=== PATIENT | male | born 1965 | race African-American/Black ===

== ENCOUNTER 2017-04-07 11:39 | Emergency (ER) | payer OTHER ==
[~2017-04-07] VITALS: Ht 172.7 cm; Wt 94.9 kg
--- NOTE | 2017-04-07 11:58 | EMERGENCY ROOM VISIT NOTE ---
History Report prepared by Korin: Montana Lin Under the Supervision of: Dr. Shane Keith M.D. First contact with patient: 11:46 Stated Complaint: ALLERGIC REACTION History of Present Illness The patient is a 51 year old male who presents to the Emergency Room with complaints of facial swelling that began 4 hours ago. The patient is on Norvax for his high blood pressure. The patient denies rashes and abdominal pain. Pt denies LOC, headache, fevers, chills, diaphoresis, visual changes, neck pain , chest pain, breathing difficulties, nausea, vomiting, abdominal pain, back pain, melena, hematochezia, urinary symptoms, numbness, weakness, lymphadenopathy, rash, or other complaints. Source of History: patient Onset: 4 hours ago Position: head (face) Quality: other (swelling) Timing: constant Associated Symptoms: No abdominal pain, No rash Review of Systems See HPI for pertinent positives and negatives. A total of ten systems were reviewed and were otherwise negative. Current/Historical Medications Scheduled Amlodipine Besylate (Norvasc), 5 MG PO DAILY Amoxicillin & Pot Clavulanate (Augmentin 875-125 mg), 875 MG PO BID Atorvastatin (Lipitor), 20 MG PO HS Dicyclomine Hcl (Bentyl), 10 MG PO BID Diphenhydramine Hcl (Benadryl Allergy), 25 MG PO HS Perphenazine (Trilafon), 16 MG PO HS Scheduled PRN Ibuprofen Tab (Motrin), 800 MG PO Q8H PRN for Pain Allergies Coded Allergies: No Known Allergies (Unverified , 04/07/17) Physical Exam Vital Signs Date Time Temp Pulse Resp B/P (MAP) Pulse Ox O2 Delivery O2 Flow Rate FiO2 04/07/17 13:12 61 20 145/85 98 04/07/17 12:07 36.9 64 20 148/95 98 Room Air 04/07/17 12:07 98 Room Air Physical Exam GENERAL: Awake, alert, well-appearing, in no distress HENT: Normocephalic, atraumatic. Minimal upper lip edema, poor dentition with extensive dental carries. No gross evidence of fluctuance within gingiva. No oropharyngeal edema, no tongue elevation, no trismus, no pain with tracheal manipulation, and no stridor. EYES: Normal conjunctiva. Sclera non-icteric. NECK: Supple. No nuchal rigidity. FROM. No JVD. RESPIRATORY: Clear to auscultation. CARDIAC: Regular rate, normal rhythm. Extremities warm and well perfused. Pulses equal. ABDOMEN: Soft, non-distended. No tenderness to palpation. No rebound or guarding. No masses. RECTAL: Deferred. MUSCULOSKELETAL: Chest examination reveals no tenderness. The back is symmetrical on inspection without obvious abnormality. There is no CVA tenderness to palpation. No joint edema. LOWER EXTREMITIES: Calves are equal size bilaterally and non-tender. No edema. No discoloration. NEURO: Normal sensorium. No sensory or motor deficits noted. SKIN: No rash or jaundice noted. Medical Decision & Procedures Medications Administered Medications (Trade) Dose Ordered Sig/Amirah Route Start Time Stop Time Status Last Admin Dose Admin Dexamethasone (Decadron Tab) 10 mg NOW ONCE PO 04/07/17 12:00 04/07/17 12:01 DC 04/07/17 12:21 10 MG Amoxicillin/ Clavulanate Potassium (Augmentin Tab) 875 mg ONE ONCE PO 04/07/17 12:15 04/07/17 12:16 DC 04/07/17 12:21 875 MG Ibuprofen (Motrin Tab) 800 mg NOW STAT PO 04/07/17 12:50 04/07/17 12:51 DC 04/07/17 13:03 800 MG ED Course 1149: The patient was evaluated in room C4. A complete history and physical exam was performed. 1300: I reevaluated the patient. Discussed results and discharge instructions: He verbalized understanding and agreement. The patient is ready for discharge. Medical Decision I reviewed the patient's past medical history, medications, and the nursing notes as described above. Differential Diagnoses: dental infection, periodontal abscess, sinusitis, allergic reaction, and angioedema. The patient is a 51-year-old gentleman current reincarcerated who presents emergency department for upper lip swelling that occurred overnight and into this morning per history of present illness. Patient denies fevers chills nausea vomiting. Does have mild tenderness along the upper gumline but no areas of fluctuance to suggest gross abscess. Does however have severely poor dentition numerous caries that are likely infected given the patient's presentation. Initially attempted to obtain Panelipse however these are no longer available at our facility. Nonetheless the patient's presentation is consistent with dental infection and less likely allergic reaction. Additionally unlikely to be angioedema given the patient is not on any culprit medications such as BREANA or ARB. Plan to treat with Augmentin and have prompt follow-up with dentist. Findings and plan for follow-up reviewed with patient. Patient agreeable and d/c'd per discharge instructions. Medication Reconcilliation Current Medication List: was personally reviewed by me Blood Pressure Screening Patient's blood pressure: Elevated blood pressure Blood pressure disposition: Elevated BP felt to be situational Impression Primary Impression: Infected dental caries Scribe Attestation The scribe's documentation has been prepared under my direction and personally reviewed by me in its entirety. I confirm that the note above accurately reflects all work, treatment, procedures, and medical decision making performed by me. Departure Information Dispostion Home / Self-Care Prescriptions Ibuprofen Tab (MOTRIN) 800 Mg Tab 800 MG PO Q8H Y for Pain for 10 Days, #30 TAB Prov: Shane Keith M.D. 04/07/17 Amoxicillin & Pot Clavulanate (Augmentin 875-125 mg) 1 Tab Tab 875 MG PO BID for 10 Days, #20 TAB Prov: Shane Keith M.D. 04/07/17 Referrals Kamryn ROBERTSON (PCP) Patient Instructions Decay Tooth, ED Abscess Tooth, [facility] Additional Instructions Please follow up with your dentist in the next 1-3 days for re-evaluation. You likely have a dental infection and possibly related abscess. Otherwise, your exam did not show signs of an emergent condition at this time. Augmentin as directed. Ibuprofen and acetaminophen for pain and fevers as needed. Return to the emergency department for worsening symptoms as described in the accompanying instructions.
[2017-04-07] MEDS ORDERED: DEXAMETHASONE 4 MG TAB PO ONE (12:00)
[2017-04-07 12:07] VITALS: TEMP 36.9; Ht 172.7 cm; Wt 94.9 kg
[2017-04-07] MEDS ORDERED: AMOXICILLIN/CLAVULANATE TAB 875 MG TAB PO ONE (12:15)
[2017-04-07] MEDS ORDERED: IBUP-1451 PO (12:48)
[2017-04-07] MEDS ORDERED: AMOX875T PO (12:48)
[2017-04-07] MEDS ORDERED: IBUPROFEN 800 MG TAB PO STA (12:50)
[2017-04-07 13:12] VITALS: BP 145/85; PULSE 61; O2SAT 98
[2017-04-07] MEDS ORDERED: PERP1TAB8 PO (13:18)
[2017-04-07] MEDS ORDERED: DIPH1TAB87 PO (13:18)
[2017-04-07] MEDS ORDERED: AMLO5TAB2 PO (13:18)
[2017-04-07] MEDS ORDERED: DICY10CA55 PO (13:18)
[2017-04-07] MEDS ORDERED: ATOR-22 PO (13:18)
== END 2017-04-07 13:14 ==
LOC: C.EDC 11:43
DX: K04.7 Periapical abscess without sinus (principal); I10 Essential (primary) hypertension